=== PATIENT | male | born 1990 | race Caucasian/White ===

== ENCOUNTER → 2017-09-13 | Outpatient (CLI) | payer OTHER | END | disposition home or self-care (01) | LOC: EMPHLTH 11:53 | PROVIDERS: ATTEND Internal Medicine | DX: Z02.1 Encounter for pre-employment examination (principal) | CPT/HCPCS: 86706; 86735; 86762; 86765; 86787 ==

== ENCOUNTER 2018-09-05 13:48 | Emergency (ER) | payer SELFPAY ==
[~2018-09-05] VITALS: Ht 177.8 cm; Wt 72.7 kg
[2018-09-05 14:04] LABS: GLUCOSE,POINT OF CARE 92 MG/DL (70-110)
[2018-09-05] MEDS ORDERED: SODIUM CHLORIDE 0.9% 1,000 ML IV ONE (14:15)
[2018-09-05 14:19] LABS: BASOPHILS % (AUTO) 0.3 % (0.0-2.0); EOSINOPHILS % (AUTO) 0.4 % (1.0-6.0); HEMATOCRIT 46.1 % (41-53); HEMOGLOBIN 15.5 g/dL (13.5-17.5); LYMPHOCYTES # (AUTO) 1.5 K/uL (1.0-4.8); LYMPHOCYTES % (AUTO) 20.8 % (22.0-44.0); MEAN CORPUSCULAR HEMOGLOBIN 29.6 pg (26.0-34.0); MEAN CORPUSCULAR HGB CONC 33.5 G/dL (31.0-37.0); MEAN CORPUSCULAR VOLUME 88 fL (80-100); MONOCYTES # (AUTO) 0.5 K/uL (0.1-1.0); MONOCYTES % (AUTO) 7.2 % (2.0-9.0); NEUTROPHILS % (AUTO) 71.3 % (40.0-70.0); PLATELET COUNT (AUTO) 195 K/uL (150-450); RED BLOOD CELL COUNT(AUTO) 5.22 MIL/uL (4.50-5.90); RED CELL DISTRIBUTION WIDTH 13.3 % (11.5-14.5)
[2018-09-05] MEDS ORDERED: IOVERSOL 350 MG/ML 100 ML VIAL ONE (14:19)
[2018-09-05] MEDS ORDERED: SODIUM CHLORIDE 0.9% 100 ML ONE (14:19)
[2018-09-05 14:27] LABS: ANION GAP 12 mmol/L (8-16); CALCIUM, TOTAL 9.3 mg/dL (8.8-10.5); CARBON DIOXIDE 26 mmol/L (22-29); CHLORIDE 102 mmol/L (98-107); CREATININE 0.96 mg/dL (0.60-1.30); GLOMERULAR FILTR. RATE CALC > 60 mL/min (>60); GLUCOSE,RANDOM 88 mg/dL (70-110); POTASSIUM 3.5 mmol/L (3.5-5.1); SODIUM SERUM 140 mmol/L (136-145); UREA NITROGEN, BLOOD 13 mg/dL (7-18)
[2018-09-05 14:33] LABS: ALANINE AMINOTRANSFERASE 57 U/L (12-78); ALBUMIN 4.2 g/dL (3.4-5.0); ALKALINE PHOSPHATASE 74 U/L (46-116); ASPARTATE AMINOTRANSFERASE 29 U/L (15-37); BILIRUBIN,TOTAL 0.7 mg/dL (0.1-1.0); TOTAL PROTEIN, SERUM 8.3 g/dL (6.4-8.2)
[2018-09-05 14:37] LABS: PROTHROMBIN TIME 10.8 SEC (9.4-11.6)
[2018-09-05 17:16] VITALS: BP 135/85
== END 2018-09-05 17:25 | disposition home or self-care (01) ==
LOC: EMS 13:49 → EEVIPCON 13:49 → EMS 17:25
DX: S34.6XXA Injury of peripheral nerve(s) at abdomen, lower back and pelvis level, initial encounter (principal); R42 Dizziness and giddiness; X58.XXXA Exposure to other specified factors, initial encounter; Y93.89 Activity, other specified; Y92.89 Other specified places as the place of occurrence of the external cause; Y99.0 Civilian activity done for income or pay
CPT/HCPCS: 36415; 70450; 70496; 70551; 72141; 80053; 82962; 85025; 85610; 93005; 96360; 99291; J7030; J7050; Q9967

== ENCOUNTER 2019-05-23 08:45 | Emergency (ER) | payer OTHER ==
[~2019-05-23] VITALS: Ht 180.3 cm; Wt 72.5 kg
[2019-05-23] MEDS ORDERED: ALBU8HFA IH (08:59)
[2019-05-23 09:21] VITALS: BP 123/68
== END 2019-05-23 09:49 | disposition home or self-care (01) ==
LOC: EMS 08:46
DX: S86.022A Laceration of left Achilles tendon, initial encounter (principal); J45.909 Unspecified asthma, uncomplicated; W20.8XXA Other cause of strike by thrown, projected or falling object, initial encounter; Y93.89 Activity, other specified; Y92.89 Other specified places as the place of occurrence of the external cause; Y99.8 Other external cause status

== ENCOUNTER 2020-02-19 09:05 | Emergency (ER) | payer OTHER ==
[~2020-02-19] VITALS: Ht 177.8 cm; Wt 73.6 kg
[~2020-02-19 09:05] MED LIST: ALBU8HFA IH
[2020-02-19 10:20] VITALS: BP 139/68
== END 2020-02-19 10:47 | disposition home or self-care (01) ==
LOC: EMS 09:09
DX: R50.9 Fever, unspecified (principal); J45.909 Unspecified asthma, uncomplicated; Z20.828 Contact with and (suspected) exposure to other viral communicable diseases
CPT/HCPCS: 87426

== ENCOUNTER 2020-02-22 06:02 | Emergency (ER) | payer OTHER ==
[~2020-02-22] VITALS: Ht 177.8 cm; Wt 72.7 kg
[2020-02-22 09:32] VITALS: BP 126/66
== END 2020-02-22 09:42 | disposition home or self-care (01) ==
LOC: EMS 06:02
DX: R06.00 Dyspnea, unspecified (principal); R06.02 Shortness of breath; R68.83 Chills (without fever); J45.909 Unspecified asthma, uncomplicated; Z20.828 Contact with and (suspected) exposure to other viral communicable diseases
CPT/HCPCS: 87426

== ENCOUNTER 2020-03-03 06:31 | Emergency (ER) | payer OTHER ==
[~2020-03-03] VITALS: Ht 180.3 cm; Wt 72.7 kg
[2020-03-03 09:15] VITALS: BP 136/72
== END 2020-03-03 09:17 | disposition home or self-care (01) ==
LOC: EMS 06:31
DX: R06.02 Shortness of breath (principal); J02.9 Acute pharyngitis, unspecified; R50.9 Fever, unspecified; J45.909 Unspecified asthma, uncomplicated; Z20.828 Contact with and (suspected) exposure to other viral communicable diseases
CPT/HCPCS: 87426; 99283; U0003